=== PATIENT | male | born 1935 | race Caucasian/White ===

== ENCOUNTER 2018-05-06 10:39 | Observation (INO) | payer OTHER ==
[2018-05-06] MEDS ORDERED: NA CHLORIDE 0.9% 1,000 ML ONE ×2 (11:41→16:23)
--- NOTE | 2018-05-06 11:42 | RAD REPORT ---
EXAM DESCRIPTION: CT - Head Brain Wo Cont - 05/06/2018 11:35 am CLINICAL HISTORY: Syncope Drowsiness COMPARISON: Head Brain Wo Cont dated 10/24/2017; Head Brain Wo Cont dated 12/21/2015 TECHNIQUE: All CT scans are performed using dose optimization technique as appropriate and may inclu de automated exposure control or mA/KV adjustment according to patient size. FINDINGS: No intracranial hemorrhage, hydrocephalus or extra-axial fluid collection.Moderate general ized brain atrophy is present with mild periventricular and deep white matter chronic microvascular i schemic changes.No areas of brain edema or evidence of midline shift. The paranasal sinuses and mastoids are clear. The calvarium is intact. Right globe prosthesis noted. IMPRESSION: No acute intracranial abnormality.
--- NOTE | 2018-05-06 12:22 | RAD REPORT ---
EXAM DESCRIPTION: US - CP - 05/06/2018 11:59 am CLINICAL HISTORY: Carotid stenosis Syncope COMPARISON: Carotid Artery Bilateral dated 10/24/2017 TECHNIQUE: Real-time sonographic evaluation of both carotid systems was performed. Doppler interroga tion was performed with waveform tracing bilaterally. FINDINGS: Normal high resistance waveforms are noted in both external carotid arteries. The common c arotid arteries and internal carotid arteries show normal low resistance waveforms. Heavy atheromatous plaquing is present involving proximal right internal carotid artery. Peak systoli c velocity measures 180 cm/second within the proximal right internal carotid with elevated right ICA/ CCA ratio 1.8. No significant left-sided carotid stenosis. Antegrade flow seen in both vertebral arteries. IMPRESSION: Heavy atheromatous plaquing involving the proximal right ICA. Stenosis estimated at 75-80% of the proximal right ICA is suspected.
--- NOTE | 2018-05-06 12:25 | EKG ---
Test Date: 2018-05-06 Test Time: 11:00:59 [employer] Merchandiser: ABDIRASHID MEASUREMENT RESULTS: Intervals: Rate: 69 WV: 122 QRSD: 120 QT: 370 QTc: 396 [place]: P: 15 WV: 122 QRS: 37 T: -49 INTERPRETIVE STATEMENTS: Normal sinus rhythm Inferior infarct, age undetermined Cannot rule out Anterior infarct, age undetermined ST & T wave abnormality, consider lateral ischemia Abnormal ECG Compared to ECG 10/24/2017 09:59:16 ST (T wave) deviation now present Possible ischemia now present Atrial-paced complex(es) or rhythm no longer present Left ventricular hypertrophy no longer present Myocardial infarct finding still present Electronically Signed On 05-06-18 12:24:08 CDT by Christopher Rodriguez
--- NOTE | 2018-05-06 12:26 | RAD REPORT ---
EXAM DESCRIPTION: RAD - Chest Single View - 05/06/2018 12:19 pm CLINICAL HISTORY: COUGH Chest pain. COMPARISON: Chest Single View dated 10/24/2017; Chest Single View dated 09/27/2016; Chest Single View dated 12/21/2015; CHEST SINGLE VIEW dated 08/08/2014; Head C Spine Cap Wo Con dated 09/29/2017 FINDINGS: Portable technique limits examination quality. The lungs are grossly clear. The heart is mildly prominent with a dual lead pacer/defibrillator devic e. Hiatal hernia is likely present. Sternotomy wires present. IMPRESSION: No acute intrathoracic process suspected.
--- NOTE | 2018-05-06 12:31 | EDPHYS ---
Physician Documentation [facility] Name: Pee Humphrey Age: 82 yrs Sex: Male : 1935 Arrival Date: 05/06/2018 Time: 10:44 Bed 14 Private MD: [facility] ED Physician Иван Mcfarlane HPI: 05/06 11:31 This 82 yrs old Male presents to ER via Wheelchair with complaints of mariana Dizziness. 11:31 The patient presents with dizziness. Onset: The symptoms/episode began/occurred last mariana night. 11:32 The patient complains of pain to the forehead. The patient describes the headache as mariana aching. Onset: The symptoms/episode began/occurred last night. Context: occurred at home. Modifying factors: The symptoms are alleviated by tylenol. Associated signs and symptoms: The patient has no apparent associated signs or symptoms. Severity of symptoms: At its worst the pain was mild, in the emergency department the pain has resolved. Historical: - Allergies: 10:54 No Known Allergies; ch - Home Meds: 10:54 unable to verify, suspects is up to date [Active]; aspirin 81 mg Oral TbEC [Active]; ch b-12 500mcg [Active]; carvedilol 25 mg Oral tab 1 tab 2 times per day [Active]; clopidogrel 75 mg Oral tab 1 tab once daily [Active]; lisinopril 20 mg Oral tab 1 tab once daily [Active]; pravastatin 40 mg Oral tab 1 tab once daily [Active]; - PMHx: 10:54 CHF; Hyperlipidemia; Hypertension; ch - PSHx: 10:54 Pacemaker; Heart Surgery; - Immunization history:: Adult Immunizations up to date. - Social history:: Smoking status: Patient/guardian denies using tobacco. - Ebola Screening: : Patient negative for fever greater than or equal to 101.5 degrees Fahrenheit, and additional compatible Ebola Virus Disease symptoms Patient denies exposure to infectious person Patient denies travel to an Ebola-affected area in the 21 days before illness onset No symptoms or risks identified at this time. - Family history:: not pertinent. ROS: 11:32 Constitutional: Negative for fever, chills, and weight loss, Eyes: Negative for injury, mariana pain, redness, and discharge, ENT: Negative for injury, pain, and discharge, Neck: Negative for injury, pain, and swelling, Cardiovascular: Negative for chest pain, palpitations, and edema, Respiratory: Negative for shortness of breath, cough, wheezing, and pleuritic chest pain, Abdomen/GI: Negative for abdominal pain, nausea, vomiting, diarrhea, and constipation, Back: Negative for injury and pain, : Negative for injury, bleeding, discharge, and swelling, MS/Extremity: Negative for injury and deformity, Skin: Negative for injury, rash, and discoloration, Psych: Negative for depression, anxiety, suicide ideation, homicidal ideation, and hallucinations, Allergy/Immunology: Negative for hives, rash, and allergies, Endocrine: Negative for neck swelling, polydipsia, polyuria, polyphagia, and marked weight changes, Hematologic/Lymphatic: Negative for swollen nodes, abnormal bleeding, and unusual bruising. 11:32 Neuro: Positive for dizziness, headache. Exam: 11:32 Constitutional: This is a well developed, well nourished patient who is awake, alert, mariana and in no acute distress. Head/Face: Normocephalic, atraumatic. Eyes: Pupils equal round and reactive to light, extra-ocular motions intact. Lids and lashes normal. Conjunctiva and sclera are non-icteric and not injected. Cornea within normal limits. Periorbital areas with no swelling, redness, or edema. ENT: Nares patent. No nasal discharge, no septal abnormalities noted. Tympanic membranes are normal and external auditory canals are clear. Oropharynx with no redness, swelling, or masses, exudates, or evidence of obstruction, uvula midline. Mucous membranes moist. Neck: Trachea midline, no thyromegaly or masses palpated, and no cervical lymphadenopathy. Supple, full range of motion without nuchal rigidity, or vertebral point tenderness. No Meningismus. Chest/axilla: Normal chest wall appearance and motion. Nontender with no deformity. No lesions are appreciated. Cardiovascular: Regular rate and rhythm with a normal S1 and S2. No gallops, murmurs, or rubs. Normal PMI, no JVD. No pulse deficits. Respiratory: Lungs have equal breath sounds bilaterally, clear to auscultation and percussion. No rales, rhonchi or wheezes noted. No increased work of breathing, no retractions or nasal flaring. Abdomen/GI: Soft, non-tender, with normal bowel sounds. No distension or tympany. No guarding or rebound. No evidence of tenderness throughout. Back: No spinal tenderness. No costovertebral tenderness. Full range of motion. Male : Normal genitalia with no discharge or lesions. Skin: Warm, dry with normal turgor. Normal color with no rashes, no lesions, and no evidence of cellulitis. MS/ Extremity: Pulses equal, no cyanosis. Neurovascular intact. Full, normal range of motion. Neuro: Awake and alert, GCS 15, oriented to person, place, time, and situation. Cranial nerves II-XII grossly intact. Motor strength 5/5 in all extremities. Sensory grossly intact. Cerebellar exam normal. Normal gait. Psych: Awake, alert, with orientation to person, place and time. Behavior, mood, and affect are within normal limits. Vital Signs: 10:54 BP 122 / 78; Pulse 62; Resp 20; Temp 98.3; Pulse Ox 97% on R/A; Weight 61.23 kg; Height ch 4 ft. 9 in. (144.78 cm); Pain 0/10; 11:15 BP 112 / 61; Pulse 60; Resp 20; Pulse Ox 95% on R/A; Pain 0/10; cc3 12:45 BP 122 / 98; Pulse 60; Resp 20; Pulse Ox 98% on R/A; cc3 14:28 BP 155 / 74; Pulse 70; Resp 18; Pulse Ox 100% on R/A; mh5 15:00 BP 163 / 98; Pulse 63; Resp 20; Pulse Ox 100% on R/A; Pain 0/10; hj 10:54 Body Mass Index 29.21 (61.23 kg, 144.78 cm) MDM: 11:23 Patient medically screened. [facility] 11:35 Data reviewed: vital signs, nurses notes, lab test result(s), EKG, radiologic studies, [facility] CT scan, plain films. 05/06 11:24 Order name: Basic Metabolic Panel; Complete Time: 14:00 [facility] 05/06 11:24 Order name: CBC with Diff; Complete Time: 14:00 [facility] 05/06 11:24 Order name: Ckmb; Complete Time: 14:00 [facility] 05/06 11:24 Order name: CPK; Complete Time: 14:00 [facility] 05/06 11:24 Order name: LFT's; Complete Time: 14:00 [facility] 05/06 11:24 Order name: Magnesium; Complete Time: 14:00 [facility] 05/06 11:24 Order name: NT PRO-BNP; Complete Time: 14:00 [facility] 05/06 11:24 Order name: PT-INR; Complete Time: 14:00 [facility] 05/06 11:24 Order name: Ptt, Activated; Complete Time: 14:00 [facility] 05/06 11:24 Order name: Troponin (emerg Dept Use Only); Complete Time: 14:00 [facility] 05/06 11:24 Order name: XRAY Chest (1 view); Complete Time: 12:28 [facility] 05/06 11:24 Order name: CT Head Brain wo Cont; Complete Time: 12:28 [facility] 05/06 11:24 Order name: Urine Culture [facility] 05/06 12:39 Order name: Urine Dipstick--Ancillary (enter results); Complete Time: 14:00 05/06 11:24 Order name: EKG; Complete Time: 11:25 [facility] 05/06 11:24 Order name: Cardiac monitoring; Complete Time: 11:31 [facility] 05/06 11:24 Order name: EKG - Nurse/Tech; Complete Time: 11:31 [facility] 05/06 11:24 Order name: IV Saline Lock; Complete Time: 12:35 [facility] 05/06 11:24 Order name: Labs collected and sent; Complete Time: 12:35 [facility] 05/06 11:24 Order name: O2 Per Protocol; Complete Time: 11:31 [facility] 05/06 11:24 Order name: O2 Sat Monitoring; Complete Time: 12:17 [facility] 05/06 11:24 Order name: Urine Dipstick-Ancillary (obtain specimen); Complete Time: 12:17 [facility] 05/06 11:24 Order name: US Carotid Artery Bilateral; Complete Time: 12:28 [facility] 05/06 12:34 Order name: CONS Physician Consult EDOH 05/06 15:23 Order name: Diet Regular; Complete Time: 15:23 jl7 Administered Medications: 12:30 Drug: NS 0.9% 1000 ml Route: IV; Rate: 125 ml/hr; Site: left antecubital; cc3 12:38 Follow up: IV Status: Infusion continued upon admission hj 12:40 Drug: Aspirin Chewable Tablet 162 mg Route: PO; cc3 12:59 Follow up: Response: No adverse reaction cc3 Disposition: 05/06/18 12:31 Hospitalization ordered by Nanda Schaefer for Observation. Preliminary diagnosis are Dizziness and giddiness - right ica 75-80% blockage, Headache. - Bed requested for Telemetry/MedSurg (observation). - Status is Observation. hj - Condition is Fair. - Problem is new. - Symptoms have improved. UTI on Admission? No Signatures: Dispatcher [employer] EDMS Brenaa Chapa, RN Иван Melgoza ch, MD MD cha Williams, Irene, RN RN iw Scout Jean RN Isabel Noriega, RN MARY df Garima Montalvo cc3 Corrections: (The following items were deleted from the chart) 16:10 12:31 Hospitalization Ordered by Nanda Schaefer MD for Observation. Preliminary diagnosis iw is Dizziness and giddiness - right ica 75-80% blockage; Headache. Bed requested for Telemetry/MedSurg (observation). Status is Observation. Condition is Fair. Problem is new. Symptoms have improved. UTI on Admission? No. mariana 16:30 16:10 05/06/2018 12:31 Hospitalization Ordered by Nanda Schaefer MD for Observation. df Preliminary diagnosis is Dizziness and giddiness - right ica 75-80% blockage; Headache. Bed requested for [facility] ER HOLD. Status is Observation. Condition is Fair. Problem is new. Symptoms have improved. UTI on Admission? No. iw 17:14 16:30 05/06/2018 12:31 Hospitalization Ordered by Nanda Schaefer MD for Observation. hj Preliminary diagnosis is Dizziness and giddiness - right ica 75-80% blockage; Headache. Bed requested for Telemetry/MedSurg (observation). Status is Observation. Condition is Fair. Problem is new. Symptoms have improved. UTI on Admission? No. df
--- NOTE | 2018-05-06 12:31 | ER ---
Nurse's Notes [facility] Name: Pee Humphrey Age: 82 yrs Sex: Male : 1935 Arrival Date: 05/06/2018 Time: 10:44 Bed 14 Private MD: Osbaldo Cooley Diagnosis: Dizziness and giddiness-right ica 75-80% blockage;Headache Presentation: 05/06 10:51 Presenting complaint: Patient states: not feeling well since yesterday during the day, ch after dinner last night, dizzyness, and skin is purple. He was sent here by Dr. Cooley, he said to come to the ER. Transition of care: patient was not received from another setting of care. Onset of symptoms was May 05, 2018. Risk Assessment: Do you want to hurt yourself or someone else? Patient reports no desire to harm self or others. Initial Sepsis Screen: Does the patient meet any 2 criteria? No. Patient's initial sepsis screen is negative. Does the patient have a suspected source of infection? No. Patient's initial sepsis screen is negative. Care prior to arrival: None. 10:51 Method Of Arrival: Wheelchair 10:51 Acuity: VENANCIO 3 ch Triage Assessment: 10:54 General: Appears in no apparent distress. comfortable, Behavior is calm, cooperative, ch appropriate for age. Pain: Denies pain. Historical: - Allergies: 10:54 No Known Allergies; - Home Meds: 10:54 unable to verify, suspects is up to date [Active]; aspirin 81 mg Oral TbEC [Active]; ch b-12 500mcg [Active]; carvedilol 25 mg Oral tab 1 tab 2 times per day [Active]; clopidogrel 75 mg Oral tab 1 tab once daily [Active]; lisinopril 20 mg Oral tab 1 tab once daily [Active]; pravastatin 40 mg Oral tab 1 tab once daily [Active]; - PMHx: 10:54 CHF; Hyperlipidemia; Hypertension; ch - PSHx: 10:54 Pacemaker; Heart Surgery; - Immunization history:: Adult Immunizations up to date. - Social history:: Smoking status: Patient/guardian denies using tobacco. - Ebola Screening: : Patient negative for fever greater than or equal to 101.5 degrees Fahrenheit, and additional compatible Ebola Virus Disease symptoms Patient denies exposure to infectious person Patient denies travel to an Ebola-affected area in the 21 days before illness onset No symptoms or risks identified at this time. - Family history:: not pertinent. Screenin:04 Abuse screen: Denies threats or abuse. Denies injuries from another. Nutritional hj screening: No deficits noted. Tuberculosis screening: No symptoms or risk factors identified. Fall Risk None identified. Assessment: 11:04 General: Appears in no apparent distress. uncomfortable, Behavior is calm, cooperative, hj appropriate for age. Pain: Denies pain. Neuro: Level of Consciousness is awake, alert, obeys commands, Oriented to person, place, time, situation, Appropriate for age. Neuro: Reports dizziness, since last night. Cardiovascular: Capillary refill < 3 seconds Patient's skin is warm and dry. Respiratory: Airway is patent Respiratory effort is even, unlabored, Respiratory pattern is regular, symmetrical. GI: No signs and/or symptoms were reported involving the gastrointestinal system. : No signs and/or symptoms were reported regarding the genitourinary system. EENT: No signs and/or symptoms were reported regarding the EENT system. Derm: No signs and/or symptoms reported regarding the dermatologic system. Musculoskeletal: No signs and/or symptoms reported regarding the musculoskeletal system. 11:30 Reassessment: wheeled to CT and US;. hj 12:00 Reassessment: back from CT;. hj 13:30 Reassessment: Patient appears in no apparent distress at this time. Patient and/or hj family updated on plan of care and expected duration. Pain level reassessed. Patient is alert, oriented x 3, equal unlabored respirations, skin warm/dry/pink. Patient denies pain at this time. 14:25 Reassessment: Patient appears in no apparent distress at this time. Patient and/or hj family updated on plan of care and expected duration. Pain level reassessed. Patient is alert, oriented x 3, equal unlabored respirations, skin warm/dry/pink. 15:22 Reassessment: Patient appears in no apparent distress at this time. Patient and/or hj family updated on plan of care and expected duration. Pain level reassessed. Patient is alert, oriented x 3, equal unlabored respirations, skin warm/dry/pink. Patient denies pain at this time. Vital Signs: 10:54 BP 122 / 78; Pulse 62; Resp 20; Temp 98.3; Pulse Ox 97% on R/A; Weight 61.23 kg; Height 4 ft. 9 in. (144.78 cm); Pain 0/10; 11:15 BP 112 / 61; Pulse 60; Resp 20; Pulse Ox 95% on R/A; Pain 0/10; cc3 12:45 BP 122 / 98; Pulse 60; Resp 20; Pulse Ox 98% on R/A; cc3 14:28 BP 155 / 74; Pulse 70; Resp 18; Pulse Ox 100% on R/A; mh5 15:00 BP 163 / 98; Pulse 63; Resp 20; Pulse Ox 100% on R/A; Pain 0/10; hj 10:54 Body Mass Index 29.21 (61.23 kg, 144.78 cm) ED Course: 10:44 Patient arrived in ED. mr 10:44 Osbaldo Cooley DO is Private Physician. mr 10:53 Triage completed. ch 10:54 Arm band placed on left wrist. Patient placed in an exam room, on a stretcher. ch 11:03 Scout Jean, RN is Primary Nurse. hj 11:04 Patient has correct armband on for positive identification. Bed in low position. Call hj light in reach. Side rails up X 1. Adult w/ patient. 11:08 EKG done, by technology assistant. reviewed by Diaz Arias MD. at1 11:23 Иван Mcfarlane MD is Attending Physician. mariana 11:35 CT Head Brain wo Cont In Process Unspecified. EDMS 11:35 CT completed. Patient tolerated procedure well. Patient moved to CT via wheelchair. sj Patient taken to ultrasound. Patient moved back from CT. 11:59 US Carotid Artery Bilateral In Process Unspecified. EDMS 12:01 Garima Montalvo is Primary Nurse. cc3 12:18 X-ray completed. Portable x-ray completed in exam room. Patient tolerated procedure ml well. 12:20 XRAY Chest (1 view) In Process Unspecified. EDMS 12:25 Initial lab(s) drawn, by ma, sent to lab. Inserted saline lock: 22 gauge in left cc3 antecubital area, using aseptic technique. Blood collected. 12:30 Nanda Schaefer MD is Hospitalizing Provider. mariana 15:29 Diet: Patient given a regular meal tray. [facility] 16:30 Inserted saline lock: 22 gauge in right antecubital area, using aseptic technique. 17:13 No provider procedures requiring assistance completed. Patient admitted, IV remains in place. intact. Administered Medications: 12:30 Drug: NS 0.9% 1000 ml Route: IV; Rate: 125 ml/hr; Site: left antecubital; cc3 12:38 Follow up: IV Status: Infusion continued upon admission 12:40 Drug: Aspirin Chewable Tablet 162 mg Route: PO; cc3 12:59 Follow up: Response: No adverse reaction cc3 Outcome: 12:31 Decision to Hospitalize by Provider. mariana 17:13 Admitted to Tele accompanied by nurse, via wheelchair, room 428, with chart, Report hj called to MARY Raymond 17:13 Condition: stable 17:13 Instructed on the need for admit, Demonstrated understanding of instructions. 17:14 Patient left the ED. Signatures: Dispatcher [employer] EDMS Breana Chapa, RN Иван Melgoza ch, MD MD cha Rivera, Maria mr Jones, Roxana Zambrano Amanda, electric locomotive crane operator EKG Tat1 Scout Jean RN RN hj Martinez, Maria [facility] Garima Montalvo cc3
[2018-05-06 12:41] LABS: Absolute Lymphocytes (CBC) 1.2 K/uL (0.7-4.9); Absolute Monocytes 0.6 K/uL (0.1-1.3); Absolute Neutrophil 5.4 K/uL (1.8-8.0); Basophils % 0.7 % (0-1.3); Hematocrit 41.4 % (39.6-49.0); Lymphocytes % 16.2 % (15.3-44.8); MCH 31.7 pg (27.0-35.0); MCV 93.7 fL (80-100); MPV 11.4 fL (7.6-11.3); Monocytes % 7.8 % (3.3-12.3); RBC Red Blood Cell Count 4.42 M/uL (4.33-5.43)
[2018-05-06] MEDS ORDERED: ASPIRIN 81 MG CHEWABLE TABLET ONE (12:46)
[2018-05-06 12:49] LABS: Urine Blood NEGATIVE (NEG); Urine Glucose NEGATIVE (NEG); Urine Protein NEGATIVE (NEG); Urine Specific Gravity 1.025 (1.005-1.030); Urine pH 5.5 (5.0-7.0)
[2018-05-06 12:57] LABS: Protime INR 1.05
[2018-05-06 13:06] LABS: Albumin 3.7 g/dL (3.4-5.0); Bilirubin Direct 0.2 mg/dL (0-0.2); Bilirubin Total 0.7 mg/dL (0.2-1.0); CKMB Creatine Kinase MB 1.8 ng/mL (0.3-3.6); Magnesium 2.4 mg/dL (1.8-2.4); Potassium 4.7 mmol/L (3.5-5.1); Protein, Total 7.1 g/dL (6.4-8.2)
[2018-05-06] MEDS ORDERED: ONDANSETRON 4 MG/2 ML VIAL IV PRN (13:25)
[2018-05-06] MEDS ORDERED: NA CHLORIDE 0.9% 1,000 ML IV SCH (14:00)
[2018-05-06 17:57] VITALS: BMI 29.2
[2018-05-06] MEDS ORDERED: PNEUMOCOCCAL VACCINE 0.5 ML IMVAC ONE (21:00)
[2018-05-07 04:16] LABS: Absolute Lymphocytes (CBC) 1.2 K/uL (0.7-4.9); Absolute Monocytes 0.6 K/uL (0.1-1.3); Absolute Neutrophil 3.9 K/uL (1.8-8.0); Basophils % 0.6 % (0-1.3); Eosinophils % 2.3 % (0-4.4); Hematocrit 37.4 % (39.6-49.0); Lymphocytes % 20.7 % (15.3-44.8); MCH 31.6 pg (27.0-35.0); MPV 11.2 fL (7.6-11.3); Monocytes % 9.7 % (3.3-12.3); RBC Red Blood Cell Count 4.06 M/uL (4.33-5.43)
[2018-05-07 04:35] LABS: Albumin 3.3 g/dL (3.4-5.0); Bilirubin Total 0.7 mg/dL (0.2-1.0); Potassium 4.4 mmol/L (3.5-5.1); Protein, Total 6.1 g/dL (6.4-8.2)
--- NOTE | 2018-05-07 07:19 | P.HP ---
Certification for Inpatient Patient admitted to: Observation With expected LOS: <2 Midnights Patient will require the following post-hospital care: None Practitioner: I am a practitioner with admitting privileges, knowledge of patient current condition, hospital course, and medical plan of care. Services: Services provided to patient in accordance with Admission requirements found in Title 42 Section 412.3 of the Code of Federal Regulations Patient History Date of Service: 05/06/18 Reason for admission: Dizziness & headache; pt with 80% right internal carotid artery stenosis History of Present Illness: Patient is an 82-year-old gentleman who came into the hospital with complaints of headache and dizziness. Patient had not been feeling well for the last couple of days. His symptoms were getting progressively worse. Patient is mainly Persian speaking only. He was worked up and he was found have a 80% right internal carotid artery stenosis. He was also feeling weak and decision was made to admit him for observation for further workup. Patient has a history of cardiac disease and has a pacemaker placed. Patient had a CT scan of the head which did not reveal any abnormalities. Patient will need to be observed and we are unable to do an MRI because of the pacemaker. Continue with clinical monitoring. Allergies No Known Allergies Allergy (Verified 08/08/14 22:48) Home Medications: Aspirin 81 mg PO DAILY 05/06/18 Carvedilol [Coreg] 25 mg PO BID 05/06/18 Clopidogrel Bisulfate [Plavix] 75 mg PO DAILY 05/06/18 D3/Red Wine/Resveratrol/Malt [Super-D3+ Softgel] 5,000 iu PO DAILY 05/06/18 Lisinopril 20 mg PO BID 05/06/18 Mecobalamin [B-12] 5,000 mcg PO DAILY 05/06/18 Pravastatin Sodium 40 mg PO DAILY 05/06/18 - Past Medical/Surgical History Has patient received pneumonia vaccine in the past: No Diabetic: No -: Hyperlipidemia -: HLD -: BPH -: glaucoma -: cataracts -: CABG -: pacemaker -: bridgette -: prostate sx -: l/eye cataract sx -: right eye prosthetic -: [place] (2000) - Family History Father Medical History: Lung disease Mother Medical History: Diabetes - Social History Smoking Status: Never smoker Alcohol use: No CD- Drugs: No Caffeine use: Yes Place of Residence: Home Review of Systems 10-point ROS is otherwise unremarkable Physical Examination - Vital Signs Temperature: 98.0 F Blood Pressure: 120/78 Pulse: 68 Respirations: 17 Pulse Ox (%): 97 - Physical Exam General: Alert, In no apparent distress, Oriented x3 HEENT: Atraumatic, PERRLA, Mucous membr. moist/pink, EOMI, Sclerae nonicteric Neck: Supple, 2+ carotid pulse no bruit, No LAD, Without JVD or thyroid abnormality Respiratory: Clear to auscultation bilaterally, Normal air movement Cardiovascular: Regular rate/rhythm, Normal S1 S2, No murmurs Gastrointestinal: Normal bowel sounds, Soft and benign, Non-distended, No tenderness Musculoskeletal: No clubbing, No swelling, No tenderness Integumentary: No rashes Neurological: Normal gait, Normal speech, Normal strength at 5/5 x4 extr, Normal tone, Sensation intact, Cranial nerves 3-12 intact, Normal affect Lymphatics: No axilla or inguinal lymphadenopathy - Studies Laboratory Data (last 24 hrs) 05/06/18 12:20: PT 12.4, INR 1.05, APTT 30.8 05/06/18 12:20: WBC 7.2, Hgb 14.0, Hct 41.4, Plt Count 141 L 05/06/18 12:20: Sodium 142, Potassium 4.7, BUN 25 H, Creatinine 1.30, Glucose 95 , Magnesium 2.4, Total Bilirubin 0.7, AST 18, ALT 16, Alkaline Phosphatase 92 Assessment & Plan - Problems (Diagnosis) (1) Stenosis of right carotid artery greater than 50% Current Visit: Yes Status: Acute (2) Syncope Onset Date: 12/22/15 Current Visit: No Status: Resolved Qualifiers: (3) Dizziness Current Visit: Yes Status: Acute (4) CAD (coronary artery disease) Onset Date: 09/28/16 Current Visit: No Status: Chronic Qualifiers: (5) Weakness Onset Date: 12/22/15 Current Visit: No Status: Resolved - Plan Plan: 1. Continue with anti-platelet therapy 2. Continue with statin therapy 3. Continue lipid profile 4. Echocardiogram 5. Cardiology consultation 6. Neurology consultation 7. Physical therapy evaluation 8. Repeat CT scan or CT angio if clinically indicated 9. GI and DVT prophylaxis Discharge Plan: Home Plan to discharge in: Greater than 2 days - Advance Directives Does patient have a Living Will: No Does patient have a Durable POA for Healthcare: Yes - Code Status/Comfort Care Code Status Assessed: Yes Code Status: Full Code Critical Care: No Time Spent Managing PTS Care (In Minutes): 50
[2018-05-07 08:35] VITALS: BP 171/82
[2018-05-07] MEDS ORDERED: CARVEDILOL 25 MG TAB PO SCH (09:00)
[2018-05-07] MEDS ORDERED: CLOPIDOGREL 75 MG TABLET PO SCH (09:00)
[2018-05-07] MEDS ORDERED: ASPIRIN 81 MG CHEWABLE TABLET PO SCH (09:00)
[2018-05-07 09:20] VITALS: O2SAT 97
[2018-05-07 10:28] VITALS: TEMP 98.5
[2018-05-07] MEDS ORDERED: PNEUMOCOCCAL VACCINE 0.5 ML IMVAC ONE (12:00)
[2018-05-07] MEDS ORDERED: ATORVASTATIN 10 MG TAB PO SCH (21:00)
--- NOTE | 2018-05-08 05:38 | DS ---
Date of Discharge: 05/07/2018 Consultants: Dr. Rodriguez with Cardiology. Procedures: None. Discharge Diagnoses: 1. Near-syncopal episode. 2. Dizziness. 3. Headache. 4. Coronary artery disease, three affiliated artery, three affiliated heart without angina. 5. Generalized weakness. 6. Carotid artery stenosis on the right, 80%. Hospital Course: The patient is an 82-year-old male who sees Dr. Molina as an outpatient, who has multiple comorbid conditions including hyperlipidemia, hypertension, benign prostatic hyperplasia, glaucoma, cataracts, history of coronary artery disease status post CABG, pacemaker, prosthetic right eye, prostate surgery, comes in with dizziness and headache. The patient was found to have 80% right internal carotid artery stenosis. However, this is something that is chronic for him and has been under the care of Dr. Molina. The patient had a head CT scan, which did not reveal any acute abnormalities. No bleed. The patient was unable to obtain MRI due to pacemaker. However, he was observed overnight for further evaluation and treatment. He was started on IV fluids. His electrolytes were within normal limits, did not have any white count or other source of infection. His chest x-ray was clear. The patient was then feeling better. His symptoms of headache and dizziness resolved. He does seem to get them intermittently. No signs of tinnitus. The patient was then able to ambulate well without any assistance. Did not have any further episodes of dizziness. His blood pressure was stable. He was then cleared for discharge from Cardiology standpoint. He was sent home in a stable condition. Activity: Fall precautions. Diet: Heart healthy. Medications: As per medication reconciliation list. Followup: Follow up with primary care physician in 2 to 3 days. Follow up with blood donor recruiter supervisor, Dr. Molina, in 1 week. Return to ER for worsening condition. Physical Examination: General: Awake, alert, oriented x3. Elderly male. CV: S1, S2. No murmurs. Respiratory: Moving air well bilaterally. No wheezing. Gastrointestinal: Abdomen is soft, nontender, nondistended. Positive bowel sounds. Extremities: No clubbing, cyanosis, edema. Neurologic: Nonfocal. Code Status: Full. SA/MODL Voice ID: [id number] Report ID: [id number] MTDD
--- NOTE | 2018-05-08 06:38 | CON ---
Date of Consultation: 05/07/[address] to Dr. Schaefer's service on 05/06/2018. I saw the patient on 05/07/2018. Reason For Consultation: Carotid stenosis. History Of Present Illness: Mr. Humphrey is an 82-year-old male. He is known to us from 2016 when we saw him here for the same diagnosis. He had come in mostly with dizziness. Was found to have an 80% blockage on the right carotid. In 2016, he had carotid Doppler showing the same findi ng. At that time, he had an ejection fraction of 45% as well. In 2016, he was to follow up with Dr. Molina regarding his right carotid. Family states that the patient has had surgery on his carotid artery, but they could not remember when this was done. The patient has really no symptoms regarding his carotid Doppler. His dizziness is not coming from right carotid stenosis. The patient denied a ny cardiac symptoms. Past Medical History: Include cerebrovascular disease, CHF, history of pacemaker, history of CABG, h ypertension, dyslipidemia. Allergies: NONE. Review of Systems: Negative. Social History: Negative. Family History: Noncontributory. Medications: At home include aspirin, Coreg, Plavix, lisinopril, and Pravachol. Physical Examination: Vital Signs: Stable. Normal rhythm. No acute distress. HEENT: Negative. Neck: Supple without adenopathy, JVD, or thyromegaly. Has a right carotid bruit. Chest: Clear. Cardiac: Reveals regular rhythm and rate without any murmurs, gallops, or rubs. Abdomen: Benign. Extremities: Revealed no clubbing, cyanosis, or edema. Impression And Plan: Right carotid stenosis that is chronic. The right carotid stenosis does not ca use dizziness. He does not have any symptoms suggestive of transient ischemic attack or stroke. The patient needs to follow up with Dr. Molina regarding his right carotid artery stenosis. He has an appointment with him coming up soon. I do believe that he needs a carotid angiogram done. According to family, he has had a cardiac workup recently because of his history of coronary artery disease an d coronary artery bypass grafting and that was normal according to them. He has chronic systolic con gestive heart failure with an ejection fraction of 45% that is asymptomatic at this point. His blood pressure and cholesterol are stable and his last pacemaker check was normal. Mr. Humphrey can go home whenever it is okay with Dr. Schaefer and he will follow up with Dr. Molina regarding his right carotid stenosis in the near future. MARCELINO/CARMEN Voice ID: [id number] Report ID: [id number]
== END 2018-05-07 12:54 | disposition home or self-care (01) ==
LOC: ER 10:39 → ERHOLD 12:32 → 4TH 17:05
PROVIDERS: ADMIT Family Medicine; ATTEND Hospitalist
DX: R51 Headache (principal); R42 Dizziness and giddiness; R55 Syncope and collapse; R53.1 Weakness; I25.10 Atherosclerotic heart disease of native coronary artery without angina pectoris; I65.21 Occlusion and stenosis of right carotid artery; E78.5 Hyperlipidemia, unspecified; I11.0 Hypertensive heart disease with heart failure; I50.22 Chronic systolic (congestive) heart failure; N40.0 Benign prostatic hyperplasia without lower urinary tract symptoms; Z95.0 Presence of cardiac pacemaker; Z95.1 Presence of aortocoronary bypass graft; Z79.82 Long term (current) use of aspirin; Z23 Encounter for immunization
CPT/HCPCS: 36415; 70450; 71045; 80048; 80053; 80076; 81003; 82550; 82553; 83735; 83880; 84484; 85025 ×2; 85610; 85730; 87086; 87088; 90670; 93005; 93880; 94760 ×3; 99285; G0009; G0378 ×2; J2405; J7030 ×3

== ENCOUNTER 2018-08-28 10:36 | Observation (INO) | payer OTHER ==
--- NOTE | 2018-08-28 11:22 | RAD REPORT ---
EXAM DESCRIPTION: CT - Head Brain Wo Cont - 08/28/2018 11:02 am CLINICAL HISTORY: Headache /alteration of consciousness COMPARISON: April 2018 TECHNIQUE: Computed axial tomography of the head was obtained. IV contrast was not requested. All CT scans are performed using dose optimization technique as appropriate and may include automated exposure control or mA/KV adjustment according to patient size. FINDINGS: An intracranial bleed is not seen . The ventricles are normal in caliber. No extra-axial fluid collection is noted. Cerebral atrophy is present. Mild low-density areas within periventricular deep white matter likely represent ischemic changes secondary to small vessel disease Fluid within the sinuses/ mastoids is not seen. IMPRESSION: No acute intracranial abnormality is seen. If patient's symptoms persist MRI of the bra in would be recommended.
[2018-08-28 11:26] LABS: Absolute Lymphocytes (CBC) 0.9 K/uL (0.7-4.9); Absolute Monocytes 0.4 K/uL (0.1-1.3); Absolute Neutrophil 6.3 K/uL (1.8-8.0); Basophils % 0.3 % (0-1.3); Eosinophils % 1.3 % (0-4.4); Hematocrit 38.4 % (39.6-49.0); Lymphocytes % 11.5 % (15.3-44.8); MPV 10.7 fL (7.6-11.3); Monocytes % 5.3 % (3.3-12.3); RBC Red Blood Cell Count 3.96 M/uL (4.33-5.43)
[2018-08-28 11:31] LABS: Protime INR 1.03
--- NOTE | 2018-08-28 11:32 | RAD REPORT ---
EXAM DESCRIPTION: Hortensia Single View08/28/2018 11:26 am CLINICAL HISTORY: Chest pain COMPARISON: April 2018 FINDINGS: The lungs appear clear of acute infiltrate. The heart is mildly enlarged. Pacemaker leads are in place. Postsurgical changes involve the chest IMPRESSION: No acute abnormalities displayed
[2018-08-28 11:47] LABS: ALT/SGPT 16 U/L (12-78); AST/SGOT 16 U/L (15-37); Albumin 3.7 g/dL (3.4-5.0); Alkaline Phosphatase 90 U/L (45-117); BUN Blood Urea Nitrogen 33 mg/dL (7-18); Bicarbonate 22 mmol/L (21-32); Bilirubin Direct 0.2 mg/dL (0-0.2); Bilirubin Total 0.5 mg/dL (0.2-1.0); CKMB Creatine Kinase MB 2.5 ng/mL (0.3-3.6); Creatine Phosphokinase 171 U/L (39-308); Glucose Level 149 mg/dL (74-106); Lipase 331 U/L (73-393); Potassium 4.7 mmol/L (3.5-5.1); Protein, Total 6.9 g/dL (6.4-8.2); Sodium Level 138 mmol/L (136-145); Troponin (Emerg Dept Use Only) < 0.02 ng/mL (0.0-0.045)
--- NOTE | 2018-08-28 12:54 | EDPHYS ---
Physician Documentation [facility] Name: Pee Humphrey Age: 83 yrs Sex: Male : 1935 Arrival Date: 08/28/2018 Time: 10:41 Bed 4 Private MD: ED Physician Diaz Arias HPI: 08/28 16:03 This 83 yrs old Male presents to ER via EMS with complaints of AMS. kdr 16:03 The patient presents with confusion, decreased mental status, decreased responsiveness. kdr Onset: The symptoms/episode began/occurred at an unknown time. Family found the patient to be poorly responsive and confused. When EMS arrived, his SBO was 90 and his O2 sat was 83%. After about 15 minutes, the patient began two arouse and by the time he was in the ED, he appeared to be largely back to baseline.. Possible causes: CVA or TIA, head injury, low blood sugar, sepsis. Associated signs and symptoms: The patient has no apparent associated signs or symptoms. Current symptoms: In the emergency department the patient's symptoms have improved, markedly, is less confused. Patient's baseline: Neuro: Motor: no deficits, Ambulation: unable to walk, is bedridden, Speech: the patient can speak but doesn't make sense. It is unknown whether or not the patient has had similar symptoms in the past. The patient has not recently seen a physician. Historical: - Allergies: 10:52 No Known Allergies; tw2 - Home Meds: 10:50 pravastatin 40 mg Oral tab 1 tab once daily [Active]; aspirin 81 mg Oral TbEC [Active]; tw2 b-12 500mcg [Active]; carvedilol 25 mg Oral tab 1 tab 2 times per day [Active]; lisinopril 20 mg Oral tab 1 tab once daily [Active]; clopidogrel 75 mg Oral tab 1 tab once daily [Active]; Vitamin D3 5,000 unit oral tab [Active]; 10:55 hydrochlorothiazide 12.5 mg Oral cap 1 cap once daily [Active]; Toviaz 4 mg oral Tb24 1 tw2 tab once daily [Active]; tamsulosin 0.4 mg oral cp24 1 cap once daily [Active]; - PMHx: 10:50 CHF; Hyperlipidemia; Hypertension; tw2 - PSHx: 10:50 Pacemaker; Heart Surgery; tw2 - Immunization history:: Adult Immunizations. - Social history:: Smoking status: . - Ebola Screening: : Patient denies travel to an Ebola-affected area in the 21 days before illness onset. ROS: 16:03 Constitutional: Negative for fever, chills, and weight loss, Eyes: Negative for injury, kdr pain, redness, and discharge, Neck: Negative for injury, pain, and swelling, Cardiovascular: Negative for chest pain, palpitations, and edema, Respiratory: Negative for shortness of breath, cough, wheezing, and pleuritic chest pain, Abdomen/GI: Negative for abdominal pain, nausea, vomiting, diarrhea, and constipation, Back: Negative for injury and pain, : Negative for injury, bleeding, discharge, and swelling, MS/Extremity: Negative for injury and deformity, Skin: Negative for injury, rash, and discoloration. 16:03 Neuro: Positive for altered mental status, headache, weakness, Negative for Exam: 16:24 Constitutional: This is a well developed, well nourished somewhat cachectic but is kdr awake and in no acute distress. Head/Face: Normocephalic, atraumatic. Eyes: Pupils equal round and reactive to light, extra-ocular motions intact. Lids and lashes normal. Conjunctiva and sclera are non-icteric and not injected. Cornea within normal limits. Periorbital areas with no swelling, redness, or edema. Neck: Trachea midline, no thyromegaly or masses palpated, and no cervical lymphadenopathy. Supple, full range of motion without nuchal rigidity, or vertebral point tenderness. No Meningismus. Chest/axilla: Normal chest wall appearance and motion. Nontender with no deformity. No lesions are appreciated. Cardiovascular: Regular rate and rhythm with a normal S1 and S2. No gallops, murmurs, or rubs. Normal PMI, no JVD. No pulse deficits. Respiratory: Lungs have equal breath sounds bilaterally, clear to auscultation and percussion. No rales, rhonchi or wheezes noted. No increased work of breathing, no retractions or nasal flaring. Abdomen/GI: Soft, non-tender, with normal bowel sounds. No distension or tympany. No guarding or rebound. No evidence of tenderness throughout. Back: No spinal tenderness. No costovertebral tenderness. Full range of motion. Skin: Warm, dry with normal turgor. Normal color with no rashes, no lesions, and no evidence of cellulitis. MS/ Extremity: Pulses equal, no cyanosis. Neurovascular intact. Full, normal range of motion. 16:24 Neuro: Orientation: to person, place, Not oriented to time, situation, Mentation: slow to respond, somnolent, responsive to pain, Motor: moves all fours. Vital Signs: 10:48 BP 123 / 70; Pulse 82; Resp 14; Temp 98.2; Pulse Ox 97% ; Pain 6/10; sg 12:15 BP 121 / 58; Pulse 64; Resp 17 S; Pulse Ox 100% ; Pain 3/10; sg 14:15 BP 118 / 72; Pulse 80; Resp 17; Temp 98.1; Pulse Ox 98% ; Pain 4/10; sg [place] Coma Score: 12:15 Eye Response: spontaneous(4). Verbal Response: oriented(5). Motor Response: obeys sg commands(6). Total: 15. MDM: 12:52 Data reviewed: vital signs, nurses notes, lab test result(s), EKG, radiologic studies. kdr Counseling: I had a detailed discussion with the patient and/or guardian regarding: the historical points, exam findings, and any diagnostic results supporting the discharge/admit diagnosis, lab results, radiology results, the need for further work-up and treatment in the hospital. ED course: EMS documented a saturation of 83% and a SBP of 90 in the field with altered mental status. 12:53 Patient medically screened. kdr 08/28 10:42 Order name: Basic Metabolic Panel; Complete Time: 12:40 kdr 08/28 10:42 Order name: Blood Culture Adult (2) kdr 08/28 10:42 Order name: CBC with Diff; Complete Time: 12:40 kdr 12 10:42 Order name: Ckmb; Complete Time: 12:40 kdr 12 10:42 Order name: CPK; Complete Time: 12:40 kdr 12 10:42 Order name: Lactate; Complete Time: 12:40 kdr 08/28 10:42 Order name: LFT's; Complete Time: 12:40 kdr 08/28 10:42 Order name: Lipase; Complete Time: 12:40 kdr 08/28 10:42 Order name: Procalcitonin; Complete Time: 12:40 kdr 12 10:42 Order name: Protime (+inr); Complete Time: 12:40 kdr 08/28 10:42 Order name: Ptt, Activated; Complete Time: 12:40 kdr 08/28 10:42 Order name: Troponin (emerg Dept Use Only); Complete Time: 12:40 kdr 08/28 10:42 Order name: Urine Microscopic Only kdr 08/28 10:42 Order name: Chest Single View XRAY; Complete Time: 12:40 kdr 08/28 10:42 Order name: Accucheck; Complete Time: 14:18 kdr 08/28 10:42 Order name: Cardiac monitoring; Complete Time: 14:18 kdr 08/28 10:42 Order name: EKG - Nurse/Tech; Complete Time: 14:18 kdr 08/28 10:42 Order name: IV Saline Lock - Large Bore; Complete Time: 14:18 kdr 08/28 10:42 Order name: Labs collected and sent; Complete Time: 14:18 kdr 08/28 10:42 Order name: O2 Per Protocol; Complete Time: 14:18 kdr 08/28 10:42 Order name: O2 Sat Monitoring; Complete Time: 14:18 kdr 08/28 10:42 Order name: Urine Dipstick-Ancillary (obtain specimen); Complete Time: 14:18 kdr 08/28 10:43 Order name: CT Head Brain wo Cont; Complete Time: 12:40 kdr 08/28 12:17 Order name: EKG Electrocardiogram EDMS Administered Medications: No medications were administered Disposition: 08/28/18 12:53 Hospitalization ordered by Carrie Ram for Observation. Preliminary diagnosis are Altered mental status, unspecified, Hypoxia and hypotension. - Bed requested for Telemetry/MedSurg (observation). - Status is Observation. sg - Condition is Fair. - Problem is new. - Symptoms have improved. UTI on Admission? No Signatures: Dispatcher [employer] EDMS Funmi Rosen RN RN dw Mohan Schulte RN RN sg Diaz Arias MD MD kdr Shirin Jacques RN RN tw2 Corrections: (The following items were deleted from the chart) 13:30 12:53 Hospitalization Ordered by Carrie Ram MD for Observation. Preliminary diagnosis dw is Altered mental status, unspecified; Hypoxia and hypotension. Bed requested for Telemetry/MedSurg (observation). Status is Observation. Condition is Fair. Problem is new. Symptoms have improved. UTI on Admission? No. kdr 14:24 13:30 08/28/2018 12:53 Hospitalization Ordered by Carrie Ram MD for Observation. sg Preliminary diagnosis is Altered mental status, unspecified; Hypoxia and hypotension. Bed requested for Telemetry/MedSurg (observation). Status is Observation. Condition is Fair. Problem is new. Symptoms have improved. UTI on Admission? No. dw
--- NOTE | 2018-08-28 12:54 | ER ---
Nurse's Notes [facility] Name: Pee Humphrey Age: 83 yrs Sex: Male : 1935 Arrival Date: 08/28/2018 Time: 10:41 Bed 4 Private MD: Diagnosis: Altered mental status, unspecified;Hypoxia and hypotension Presentation: 08/28 10:40 Presenting complaint: EMS states: pt lives at home with his son, the son noticed he was tw2 pale and unresponsive and said that he would twitch, and this has happened before but this time it is lasting longer, when we arrived he was pale and unresponsive, he would twitch, then wake up, we got a 20g and a ns bolus in him, initially couldn't get a bp reading, we got 90/55 in the truck, now he is a\T\ox 3. Transition of care: patient was not received from another setting of care. Onset of symptoms. Risk Assessment: Do you want to hurt yourself or someone else? Patient reports no desire to harm self or others. Initial Sepsis Screen: Does the patient meet any 2 criteria? No. Patient's initial sepsis screen is negative. Does the patient have a suspected source of infection? No. Patient's initial sepsis screen is negative. Care prior to arrival: Medication(s) given: Normal saline infusion, 500 mL, IV initiated. 20 GA, in the left forearm. 10:40 Method Of Arrival: EMS: [facility] tw2 10:40 Acuity: VENANCIO 3 tw Historical: - Allergies: 10:52 No Known Allergies; tw - Home Meds: 10:50 pravastatin 40 mg Oral tab 1 tab once daily [Active]; aspirin 81 mg Oral TbEC [Active]; tw2 b-12 500mcg [Active]; carvedilol 25 mg Oral tab 1 tab 2 times per day [Active]; lisinopril 20 mg Oral tab 1 tab once daily [Active]; clopidogrel 75 mg Oral tab 1 tab once daily [Active]; Vitamin D3 5,000 unit oral tab [Active]; 10:55 hydrochlorothiazide 12.5 mg Oral cap 1 cap once daily [Active]; Toviaz 4 mg oral Tb24 1 tw2 tab once daily [Active]; tamsulosin 0.4 mg oral cp24 1 cap once daily [Active]; - PMHx: 10:50 CHF; Hyperlipidemia; Hypertension; tw2 - PSHx: 10:50 Pacemaker; Heart Surgery; tw2 - Immunization history:: Adult Immunizations. - Social history:: Smoking status: . - Ebola Screening: : Patient denies travel to an Ebola-affected area in the 21 days before illness onset. Screenin:51 Abuse screen: Denies threats or abuse. Nutritional screening: No deficits noted. tw2 Tuberculosis screening: No symptoms or risk factors identified. Fall Risk None identified. Assessment: 11:00 General: Appears in no apparent distress. uncomfortable, slender, well groomed, well sg developed, well nourished, Behavior is calm, cooperative, appropriate for age. Pain: Complains of pain in back of head Pain does not radiate. Neuro: Level of Consciousness is awake, alert, obeys commands, Oriented to person, place, Speech is normal, Facial symmetry appears normal. Cardiovascular: Heart tones S1 S2 present Capillary refill is brisk in bilateral fingers Patient's skin is warm and dry. Chest pain is denied. Respiratory: Airway is patent Respiratory effort is even, unlabored, Respiratory pattern is regular, symmetrical, Breath sounds are clear. GI: Abdomen is round non-distended, Bowel sounds present X 4 quads. : No signs and/or symptoms were reported regarding the genitourinary system. EENT: No signs and/or symptoms were reported regarding the EENT system. Derm: Skin is pink, warm \T\ dry. Musculoskeletal: No signs and/or symptoms reported regarding the musculoskeletal system. Vital Signs: 10:48 BP 123 / 70; Pulse 82; Resp 14; Temp 98.2; Pulse Ox 97% ; Pain 6/10; sg 12:15 BP 121 / 58; Pulse 64; Resp 17 S; Pulse Ox 100% ; Pain 3/10; sg 14:15 BP 118 / 72; Pulse 80; Resp 17; Temp 98.1; Pulse Ox 98% ; Pain 4/10; sg Jennifer Coma Score: 12:15 Eye Response: spontaneous(4). Verbal Response: oriented(5). Motor Response: obeys sg commands(6). Total: 15. ED Course: 10:40 Placed in gown. Bed in low position. Side rails up X2. residential monitor on. Pulse ox on. tw2 NIBP on. Warm blanket given. 10:41 Patient arrived in ED. tw2 10:41 Diaz Arias MD is Attending Physician. kdr 10:46 Mohan Schulte, RN is Primary Nurse. sg 10:47 Triage completed. tw2 10:47 Arm band placed on. tw2 10:47 Initial lab(s) drawn, by me, sent to lab. Maintain EMS IV. Dressing intact. Good blood sg return noted. Site clean \T\ dry. Gauge \T\ site: 20 L Forearm. IV is patent, is intact, with fluids infusing freely, with good blood return, Flushed left forearm with 5 ml normal saline. 10:54 EKG done, by tool and die technician. reviewed by Diaz Arias MD. at1 11:02 CT Head Brain wo Cont In Process Unspecified. EDMS 11:27 Chest Single View XRAY In Process Unspecified. EDMS 11:40 Inserted saline lock: 22 gauge in right forearm, using aseptic technique. Blood sg collected. 11:40 First set of blood cultures drawn by me. sg 12:52 Carrie Ram MD is Hospitalizing Provider. kdr 14:20 No provider procedures requiring assistance completed. Patient admitted, IV remains in sg place. intact, No redness/swelling at site. Administered Medications: No medications were administered Outcome: 12:53 Decision to Hospitalize by Provider. kdr 14:15 Admitted to Tele sg 14:15 Condition: stable 14:15 Instructed on follow up and referral plans. safety practices, Demonstrated understanding of instructions, follow-up care. 14:24 Patient left the ED. sg Signatures: Dispatcher [employer] EDMS Mohan Schulte, RN RN Diaz Arias MD MD kdr Jessie Carreon, disaster response director EKG Tat1 Shirin Jacques RN RN tw2
[2018-08-28] MEDS ORDERED: ACETAMINOPHEN 500 MG TAB PO PRN (14:45)
[2018-08-28 15:08] VITALS: BMI 27.1
[2018-08-28] MEDS: NA CHLORIDE 0.9% 1,000 ML IV SCH ×2 (15:28→21:30)
[2018-08-28 17:13] LABS: Urine Bacteria <20 /HPF (NONE SEEN); Urine RBC <5 /HPF (NONE SEEN)
[2018-08-28 17:14] LABS: Urine Culture Reflex Order REFLEXED; Urine Mucus MOD /HPF (NONE SEEN)
--- NOTE | 2018-08-28 18:51 | P.HP ---
Certification for Inpatient Patient admitted to: Observation With expected LOS: <2 Midnights Practitioner: I am a practitioner with admitting privileges, knowledge of patient current condition, hospital course, and medical plan of care. Services: Services provided to patient in accordance with Admission requirements found in Title 42 Section 412.3 of the Code of Federal Regulations Patient History Date of Service: 08/29/18 History of Present Illness: This is a 83-year-old male with history of CHF, hyperlipidemia, hypertension and a pacemaker admitted for an episode of unresponsiveness this morning that lasts over 15 min that. Per patient, he fell as low as well as this morning. He did he called ambulance and was brought to the ER. Per daughter, he does have episodes like this in passing out with diaphoresis. Nothing different this time per daughter. In the ER, his oxygen was low in the 80s and they were unable to get a blood pressure. After some fluids, his blood pressure did improve to 90/55 and improved even further from there. At the time of my exam, his back to baseline, denying any chest pain, shortness breath, dizziness, pain and worry is symptoms. He does use a cane to walk at home and he is pretty independent at baseline. At the time of my exam, he was satting 90% on room air as of has a stable and he was hemodynamically stable. We will be admitted for observation overnight Son was on at bedside, but after speaking to nurse it seems that the son did he potentially heard the defibrillator going off last night when patient fell. But he is not very sure and neither is the patient. Allergies No Known Allergies Allergy (Verified 08/28/18 14:47) Home Medications: Aspirin 81 mg PO DAILY 05/06/18 Clopidogrel Bisulfate [Plavix*] 75 mg PO DAILY 05/06/18 D3/Red Wine/Resveratrol/Malt [Super-D3+ Softgel] 5,000 iu PO DAILY 05/06/18 Lisinopril 20 mg PO BID 05/06/18 Mecobalamin [B-12] 1,000 mcg PO DAILY 05/06/18 Pravastatin Sodium 40 mg PO DAILY 05/06/18 Fesoterodine Fumarate [Toviaz] 1 tab PO DAILY 08/28/18 Tamsulosin [Flomax*] 1 tab PO BEDTIME 08/28/18 Carvedilol [Coreg] 12.5 mg PO BID #30 tab 12/21/18 - Past Medical/Surgical History Has patient received pneumonia vaccine in the past: Yes Diabetic: No -: Hyperlipidemia -: CHF -: BPH -: glaucoma -: cataracts -: CABG -: HTN -: Pacemaker -: ND -: pacemaker -: bridgette -: prostate sx -: l/eye cataract sx -: right eye prosthetic -: ND (2000) - Family History Father -: Lung disease Mother -: Diabetes - Social History Smoking Status: Never smoker Alcohol use: No CD- Drugs: No Caffeine use: Yes Place of Residence: Home Review of Systems General: Unremarkable Eyes: Unremarkable ENT: Unremarkable Respiratory: Unremarkable Cardiovascular: Unremarkable Gastrointestinal: Unremarkable Genitourinary: Unremarkable Musculoskeletal: Unremarkable Integumentary: Unremarkable Neurological: As per HPI Physical Examination - Vital Signs Temperature: 98.8 F Blood Pressure: 112/56 Pulse: 72 Respirations: 18 Pulse Ox (%): 96 - Physical Exam General: Alert, In no apparent distress, Oriented x3 HEENT: Atraumatic, PERRLA, Mucous membr. moist/pink, EOMI, Sclerae nonicteric Neck: Supple, 2+ carotid pulse no bruit, No LAD, Without JVD or thyroid abnormality Respiratory: Clear to auscultation bilaterally, Normal air movement Cardiovascular: Regular rate/rhythm, Normal S1 S2 Gastrointestinal: Normal bowel sounds, No tenderness Musculoskeletal: No tenderness Integumentary: No rashes Neurological: Normal gait, Normal speech, Normal strength at 5/5 x4 extr, Normal tone, Normal affect Lymphatics: No axilla or inguinal lymphadenopathy - Studies Laboratory Data (last 24 hrs) 08/28/18 10:55: PT 12.1, INR 1.03, APTT 22.7 L 08/28/18 10:55: WBC 7.7, Hgb 13.0 L, Hct 38.4 L, Plt Count 151 L 08/28/18 10:55: Sodium 138, Potassium 4.7, BUN 33 H, Creatinine 1.70 H, Glucose 149 H, Total Bilirubin 0.5, AST 16, ALT 16, Alkaline Phosphatase 90, Lipase 331 Assessment and Plan - Plan This is an 83-year-old male with: Syncopal episode Likely 2/2 medication effects? Back to baseline now, no complaints. Will monitor overnight Hypotension Patient on lot of blood pressure medication, will need to adjust medications prior to discharge. Hold medications at this time. 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 History of endarterectomy bilaterally Stable Hyperlipidemia Continue home statin Essential Hypertension Hold medications at this time, will adjust prior to discharge. DVT prophylaxis: Plavix GI prophylaxis: Not needed Diet: heart healthy Dispo: Admit to floor, monitor overnight. If asymptomatic and pacemaker okay, discharge home tomorrow. - Advance Directives Does patient have a Living Will: Yes Does patient have a Durable POA for Healthcare: Yes Physician Review: Patient Assessed, Agree with Above Assessment and Plan Time Spent Managing Pts Care (In Minutes): 55
[2018-08-28] MEDS ORDERED: TAMSULOSIN 0.4 MG SR CAP PO SCH (21:00)
[2018-08-28] MEDS ORDERED: ATORVASTATIN 10 MG TAB PO SCH (21:00)
[2018-08-28] MEDS: LISINOPRIL 20 MG TAB PO SCH (21:28)
[2018-08-28] MEDS: CARVEDILOL 25 MG TAB PO SCH (21:29)
[2018-08-28 23:29] VITALS: O2SAT 94
--- NOTE | 2018-08-29 07:02 | EKG ---
Test Date: 2018-08-28 Test Time: 10:46:05 Front Office Help: ABDIRASHID MEASUREMENT RESULTS: Intervals: Rate: 83 RI: 238 QRSD: 116 QT: 392 QTc: 460 [place]: P: 5 RI: 238 QRS: 24 T: -30 INTERPRETIVE STATEMENTS: Atrial-paced rhythm with prolonged AV conduction Inferior infarct, age undetermined Anterior infarct, age undetermined Abnormal ECG Compared to ECG 05/06/2018 11:00:59 Sinus rhythm no longer present ST (T wave) deviation no longer present Possible ischemia no longer present Myocardial infarct finding still present Electronically Signed On 08-29-18 06:53:03 BODY WORKER by Christopher Rodriguez
[2018-08-29 07:20] LABS: Absolute Lymphocytes (CBC) 0.9 K/uL (0.7-4.9); Absolute Monocytes 0.5 K/uL (0.1-1.3); Absolute Neutrophil 5.6 K/uL (1.8-8.0); Basophils % 0.5 % (0-1.3); Eosinophils % 1.3 % (0-4.4); Hematocrit 34.1 % (39.6-49.0); Lymphocytes % 12.9 % (15.3-44.8); MPV 10.8 fL (7.6-11.3); RBC Red Blood Cell Count 3.57 M/uL (4.33-5.43)
[2018-08-29 07:52] LABS: Albumin 3.3 g/dL (3.4-5.0); Bilirubin Total 0.6 mg/dL (0.2-1.0); Magnesium 2.2 mg/dL (1.8-2.4); Phosphorus 2.6 mg/dL (2.5-4.9); Potassium 4.1 mmol/L (3.5-5.1); Protein, Total 5.9 g/dL (6.4-8.2)
[2018-08-29] MEDS ORDERED: ENOXAPARIN 30 MG/0.3 ML SQ SCH (09:00)
[2018-08-29] MEDS ORDERED: CYANOCOBALAMIN 1,000 MCG TAB PO SCH (09:00)
[2018-08-29] MEDS ORDERED: ASPIRIN 81 MG CHEWABLE TABLET PO SCH (09:00)
[2018-08-29] MEDS ORDERED: CLOPIDOGREL 75 MG TABLET PO SCH (09:00)
[2018-08-29] MEDS ORDERED: FESOTERODINE FUMARATE PO SCH (09:00)
[2018-08-29] MEDS ORDERED: hydroCHLOROthiazide 12.5 MG CAP PO SCH (09:00)
[2018-08-29] MEDS: CARVEDILOL 25 MG TAB PO SCH (09:26)
[2018-08-29] MEDS: LISINOPRIL 20 MG TAB PO SCH (09:27)
--- NOTE | 2018-08-29 12:19 | CON ---
Date of Consultation: 08/29/[address] patient admitted to Dr. Ram's service on 08/28/2018. I saw the patient on 08/29/2018. Reason For Consultation: Altered mental status and hypotension. History Of Present Illness: Mr. Humphrey is an 83-year-old male with history of signific ant dementia, has had a history of CAD, status post CABG; has a history of cerebrovascular disease, s tatus post bilateral carotid endarterectomy. Has had a CVA before. Has a history of congestive hear t failure that is probably diastolic. Has a history of hypertension, dyslipidemia, benign prostatic hypertrophy, and a pacemaker placement. 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 They were souza pposed to follow up with Dr. Molina in that regard. He came in with altered mental status, hypotens ion, hypoxia; was found to have a normal chest x-ray, normal CT of the head. Pacemaker function appe ared to be normal. Creatinine is 1.7. Troponin is negative. This has improved and he is asymptomat ic now. Past Medical History: As stated above. Allergies: NONE. Review of Systems: Negative. Social History: Negative. Family History: Noncontributory. Medications: His medications include Pravachol, Flomax, aspirin, Plavix, Coreg, hydrochlorothiazide, and lisinopril. Physical Examination: General: He was alert and oriented x3. Vital Signs: Stable. He was in a paced rhythm, afebrile. HEENT: Negative. Neck: Supple with bilateral carotid bruit. Chest: Clear to auscultation and percussion. Cardiac Exam: Revealed a paced rhythm. No murmurs, gallops, or rubs. Abdomen: Benign. Extremities: Revealed no clubbing, cyanosis, or edema. Neurological Exam: Appeared to be grossly normal. Diagnostic Data: As stated earlier. Impression And Plan: I think his symptoms of altered mental status, low blood pressure, and decrease d O2 are probably secondary to orthostatic hypotension and possibly bradycardia. I would definitely check his pacemaker function to be sure that this is not an issue. I think we need to stop his hydro chlorothiazide. I think the combination of hydrochlorothiazide, Flomax, and Coreg may be an issue. I would definitely decrease his Coreg dose as his blood pressure is pretty adequate. I would continu e the aspirin and Plavix and the lisinopril as well as the Pravachol. I still think he needs to have his carotid checked, but I recommended he follows up with Dr. Molina as soon as possible. His othe r problems including dyslipidemia, BPH, history of CABG, CVA, and history of congestive heart failure seem to be stable. I would not repeat any further cardiac workup. He just had an echo recently in April, which was within normal limit. I will discuss the case further with Dr. Ram. We can send him home whenever it is okay with her. MARCELINO/CARMEN Voice ID: [id number] Report ID: [id number]
[2018-08-29 16:17] VITALS: TEMP 98.8
--- NOTE | 2018-08-29 16:21 | P.SSS ---
Patient History Date of Service: 08/29/18 History of Present Illness: This is a 83-year-old male with history of CHF, hyperlipidemia, hypertension and a pacemaker admitted for an episode of unresponsiveness this morning that lasts over 15 min that. Per patient, he fell as low as well as this morning. He did he called ambulance and was brought to the ER. Per daughter, he does have episodes like this in passing out with diaphoresis. Nothing different this time per daughter. In the ER, his oxygen was low in the 80s and they were unable to get a blood pressure. After some fluids, his blood pressure did improve to 90/55 and improved even further from there. At the time of my exam, his back to baseline, denying any chest pain, shortness breath, dizziness, pain and worry is symptoms. He does use a cane to walk at home and he is pretty independent at baseline. At the time of my exam, he was satting 90% on room air as of has a stable and he was hemodynamically stable. We will be admitted for observation overnight Son was on at bedside, but after speaking to nurse it seems that the son did he potentially heard the defibrillator going off last night when patient fell. But he is not very sure and neither is the patient. Allergies No Known Allergies Allergy (Verified 08/28/18 14:47) Home Medications: Aspirin 81 mg PO DAILY 05/06/18 Clopidogrel Bisulfate [Plavix*] 75 mg PO DAILY 05/06/18 D3/Red Wine/Resveratrol/Malt [Super-D3+ Softgel] 5,000 iu PO DAILY 05/06/18 Lisinopril 20 mg PO BID 05/06/18 Mecobalamin [B-12] 1,000 mcg PO DAILY 05/06/18 Pravastatin Sodium 40 mg PO DAILY 05/06/18 Fesoterodine Fumarate [Toviaz] 1 tab PO DAILY 08/28/18 Tamsulosin [Flomax*] 1 tab PO BEDTIME 08/28/18 Carvedilol [Coreg] 12.5 mg PO BID #30 tab 08/29/18 - Past Medical/Surgical History Has patient received pneumonia vaccine in the past: Yes Diabetic: No -: Hyperlipidemia -: CHF -: BPH -: glaucoma -: cataracts -: CABG -: HTN -: Pacemaker -: MA -: pacemaker -: bridgette -: prostate sx -: l/eye cataract sx -: right eye prosthetic -: MA (2000) - Family History Father -: Lung disease Mother -: Diabetes - Social History Smoking Status: Never smoker Alcohol use: No CD- Drugs: No Caffeine use: Yes Place of Residence: Home Review of Systems As noted Physical Examination - Vital Signs Temperature: 98.8 F Blood Pressure: 112/56 Pulse: 72 Respirations: 18 Pulse Ox (%): 96 - Physical Exam General: Alert, In no apparent distress, Oriented x3 HEENT: Atraumatic, PERRLA, Mucous membr. moist/pink, EOMI, Sclerae nonicteric Neck: Supple, 2+ carotid pulse no bruit, No LAD, Without JVD or thyroid abnormality Respiratory: Clear to auscultation bilaterally, Normal air movement Cardiovascular: Regular rate/rhythm, Normal S1 S2 Gastrointestinal: Normal bowel sounds, No tenderness Musculoskeletal: No tenderness Integumentary: No rashes Neurological: Normal gait, Normal speech, Normal strength at 5/5 x4 extr, Normal tone, Normal affect Lymphatics: No axilla or inguinal lymphadenopathy Treatment Summary: Syncopal episode: Resolved, asymptomatic overnight. Will make medication changes as below. Hypotension: BP now back in normal range. Pacemaker in place Pacemaker interrogated. No changes recommended at this time. Cardiology consulted. Patient's spiritual care coordinator is Dr. Molina. He is to follow up with Dr. Molina after discharge in 1-2 weeks for further evaluation. History of MA, quadruple bypass Remained stable throughout the stay. History of endarterectomy bilaterally Stable throughout the stay. Hyperlipidemia Continue home statin, no changes to dosage on discharge. Essential Hypertension Medication changes: Discontinue HCTZ, decrease coreg to 12.5 mg bid. Explained to patient and counseled extensively on taking medications correctly. - Disposition Disposition: ROUTINE DISCHARGE Condition: GOOD Consultations: Cardiology, Dr. Rodriguez Patient Discharge Instructions: Please see your primary care physician in 1 week. Please see your spiritual care coordinator in 1 week for follow up. Medication changes : Discontinue hydrochlorothiazide till you see your spiritual care coordinator. Decrease the dosage for coreg to 12.5 mg twice a day. New prescription sent to your pharmacy. Please do not take both your old medication and the new one together. We would like to decrease the dosage to 12.5 mg twice a day. Diet: AHA Activity: Fall precautions Physician Review: Patient Assessed, Agree with Above Assessment and Plan Time Spent Managing Pts Care (In Minutes): 55
--- OUTSIDE RECORDS SUMMARY | 2018-08-29 17:05 | XMS REPORT ---
:1935 [facility] Address [address] [place] [address] Dr. Pimentel [address] [place] [id number] Care Team Providers Name Role Phone Unavailable Unavailable Unavailable Payers Payer Name Policy Type Policy Number Effective Date Expiration Date Problems This patient has no known problems. Allergies, Adverse Reactions, Alerts Allergy Allergy Status Severity Reaction(s) Onset Inactive Treating Comments Name Type Date Date Clinician No Known DA Active U 2013-03 Allergies -10 00:00:0 0 Medications This patient has no known medications.
[2018-08-29 17:19] VITALS: BP 161/68
--- NOTE | 2018-09-01 02:40 | PN ---
Mr. Humphrey had came in with what sounded like orthostatic hypotension but a pacemaker report shows an episode of tachycardia that was pacer terminated. This certainly could have caused his syncope. I t hink Mr. Humphrey needs to continue his beta-blockers. I think we need to discontinue his hydrochloroth iazide as it may have exacerbated this with hypokalemia and hypomagnesemia. I think he needs to be c onsidered for an Electrophysiology consultation. He also needs his carotid arteries evaluated. He s ees Dr. Molina as an outpatient and I think whenever he goes home he needs to go see Dr. Molina for both of those issues. The pacemaker was checked and adjusted. MARCELINO/MODL Voice ID: [id number] Report ID: [id number]
== END 2018-08-29 17:56 | disposition home or self-care (01) ==
LOC: ER 10:36 → ERHOLD 13:05 → 4TH 14:20
PROVIDERS: ADMIT Family Medicine; ATTEND Family Medicine
DX: R55 Syncope and collapse (principal); I95.9 Hypotension, unspecified; I11.0 Hypertensive heart disease with heart failure; I50.9 Heart failure, unspecified; E78.5 Hyperlipidemia, unspecified; N40.0 Benign prostatic hyperplasia without lower urinary tract symptoms; Z95.1 Presence of aortocoronary bypass graft; I25.2 Old myocardial infarction; Z95.0 Presence of cardiac pacemaker
CPT/HCPCS: 36415; 70450; 71045; 80048; 80053; 80076; 81015; 82550; 82553; 83605; 83690; 83735; 84100; 84145; 84484; 85025 ×2; 85610; 85730; 87088; 93005; 93280; 94760 ×3; 99285; G0378 ×2; J1650; J7030 ×2; 87086

== ENCOUNTER 2019-02-05 11:23 | Emergency (ER) | payer OTHER ==
[2019-02-05 12:31] LABS: Absolute Lymphocytes (CBC) 0.9 K/uL (0.7-4.9); Absolute Monocytes 0.6 K/uL (0.1-1.3); Absolute Neutrophil 7.8 K/uL (1.8-8.0); Basophils % 0.4 % (0-1.3); Eosinophils % 0.8 % (0-4.4); Hematocrit 40.4 % (39.6-49.0); Lymphocytes % 9.7 % (15.3-44.8); MPV 10.8 fL (7.6-11.3); Monocytes % 6.3 % (3.3-12.3); RBC Red Blood Cell Count 4.17 M/uL (4.33-5.43)
[2019-02-05 12:33] LABS: Protime INR 1.06
--- NOTE | 2019-02-05 14:29 | EKG ---
Test Date: 2019-02-05 Test Time: 11:25:06 Benefits Assistant: RAFI MEASUREMENT RESULTS: Intervals: Rate: 81 VT: 128 QRSD: 120 QT: 386 QTc: 448 [place]: P: 13 VT: 128 QRS: 30 T: 252 INTERPRETIVE STATEMENTS: Sinus rhythm with occasional premature ventricular complexes Inferior infarct, age undetermined ST & T wave abnormality, consider lateral ischemia Abnormal ECG Compared to ECG 08/28/2018 10:46:05 Ventricular premature complex(es) now present ST (T wave) deviation now present Possible ischemia now present Atrial-paced complex(es) or rhythm no longer present Ventricular-paced complex(es) or rhythm no longer present Myocardial infarct finding still present Electronically Signed On 02-05-19 14:28:46 CDT by Christopher Rodriguez
[2019-02-05 14:37] LABS: ALT/SGPT 18 U/L (12-78); AST/SGOT 21 U/L (15-37); Albumin 3.4 g/dL (3.4-5.0); Alkaline Phosphatase 89 U/L (45-117); BUN Blood Urea Nitrogen 29 mg/dL (7-18); Bicarbonate 20 mmol/L (21-32); Bilirubin Direct 0.2 mg/dL (0-0.2); Bilirubin Total 0.8 mg/dL (0.2-1.0); Glucose Level 124 mg/dL (74-106); Magnesium 2.5 mg/dL (1.8-2.4); NT PRO-BNP 468 pg/mL (<450); Potassium 4.9 mmol/L (3.5-5.1); Protein, Total 6.6 g/dL (6.4-8.2); Sodium Level 140 mmol/L (136-145); Troponin (Emerg Dept Use Only) < 0.02 ng/mL (0.0-0.045)
--- OUTSIDE RECORDS SUMMARY | 2019-02-05 15:00 | XMS REPORT ---
:1935 [facility] Address [address] [place] [address] Dr. Pimentel [address] [place] [id number] Care Team Providers Name Role Phone Unavailable [...]
--- NOTE | 2019-02-05 15:41 | RAD REPORT ---
EXAM DESCRIPTION: RAD - Chest Single View - 02/05/2019 1:24 pm CLINICAL HISTORY: AMS Chest pain. COMPARISON: Chest Single View dated 08/28/2018; Chest Single View dated 05/06/2018; Chest Single View dated 10/24/2017; Chest Single View dated 09/27/2016 FINDINGS: Portable technique limits examination quality. The lungs are grossly clear. The heart is mildly enlarged in size with a multi lead pacer/defibrillat or device. No displaced fractures.Sternotomy wires present. IMPRESSION: No acute intrathoracic process suspected.
--- NOTE | 2019-02-05 16:50 | EDPHYS ---
Physician Documentation [facility] Name: Pee Humphrey Age: 83 yrs Sex: Male : 1935 Arrival Date: 02/05/2019 Time: 11:24 Bed 6 Private MD: ED Physician Diaz Arias HPI: 02/05 16:42 This 83 yrs old Male presents to ER via EMS with complaints of Firing of kdr Defibrillator/Pacemaker, Unresponsive. 16:42 The patient states that he does not know why he is here. States he feels fine and in kdr his normal states of health. Onset: The symptoms/episode began/occurred gradually, today. Severity of symptoms: At their worst the symptoms were very mild in the emergency department the symptoms have resolved. It is unknown whether or not the patient has had similar symptoms in the past. It is unknown whether or not the patient has recently seen a physician. Historical: - Allergies: 12:04 No Known Allergies; tw2 - Home Meds: 12:04 aspirin 81 mg Oral TbEC [Active]; b-12 500mcg [Active]; Vitamin D3 5,000 unit Oral tab tw2 [Active]; pravastatin 40 mg Oral tab 1 tab once daily [Active]; Toviaz 4 mg Oral Tb24 1 tab once daily [Active]; clopidogrel 75 mg Oral tab 1 tab once daily [Active]; lisinopril 20 mg Oral tab 1 tab once daily [Active]; carvedilol 25 mg Oral tab 1 tab 2 times per day [Active]; - PMHx: 12:04 Hyperlipidemia; Hypertension; CHF; tw2 - PSHx: 12:04 Pacemaker; Heart Surgery; tw2 - Immunization history:: Adult Immunizations. - Social history:: Smoking status: . - Ebola Screening: : Patient denies travel to an Ebola-affected area in the 21 days before illness onset. ROS: 16:42 Constitutional: Negative for fever, chills, and weight loss, Eyes: Negative for injury, kdr pain, redness, and discharge, Neck: Negative for injury, pain, and swelling, Respiratory: Negative for shortness of breath, cough, wheezing, and pleuritic chest pain, Abdomen/GI: Negative for abdominal pain, nausea, vomiting, diarrhea, and constipation, Back: Negative for injury and pain, : Negative for injury, bleeding, discharge, and swelling, MS/Extremity: Negative for injury and deformity, Skin: Negative for injury, rash, and discoloration, Neuro: Negative for headache, weakness, numbness, tingling, and seizure activity. Psych: Negative for depression, anxiety, suicide ideation, homicidal ideation, and hallucinations, Allergy/Immunology: Negative for hives, rash, and allergies, Endocrine: Negative for neck swelling, polydipsia, polyuria, polyphagia, and marked weight changes, Hematologic/Lymphatic: Negative for swollen nodes, abnormal bleeding, and unusual bruising. 16:42 Cardiovascular: Positive for Pacemaker firing reported but the patient denies. Exam: 16:42 Constitutional: This is a well developed, well nourished patient who is awake, alert, kdr and in no acute distress. Head/Face: Normocephalic, atraumatic. Eyes: Pupils equal round and reactive to light, extra-ocular motions intact. Lids and lashes normal. Conjunctiva and sclera are non-icteric and not injected. Cornea within normal limits. Periorbital areas with no swelling, redness, or edema. Neck: Trachea midline, no thyromegaly or masses palpated, and no cervical lymphadenopathy. Supple, full range of motion without nuchal rigidity, or vertebral point tenderness. No Meningismus. Chest/axilla: Normal chest wall appearance and motion. Nontender with no deformity. No lesions are appreciated. Cardiovascular: Regular rate and rhythm with a normal S1 and S2. No gallops, murmurs, or rubs. Normal PMI, no JVD. No pulse deficits. Respiratory: Lungs have equal breath sounds bilaterally, clear to auscultation and percussion. No rales, rhonchi or wheezes noted. No increased work of breathing, no retractions or nasal flaring. Abdomen/GI: Soft, non-tender, with normal bowel sounds. No distension or tympany. No guarding or rebound. No evidence of tenderness throughout. Back: No spinal tenderness. No costovertebral tenderness. Full range of motion. Skin: Warm, dry with normal turgor. Normal color with no rashes, no lesions, and no evidence of cellulitis. MS/ Extremity: Pulses equal, no cyanosis. Neurovascular intact. Full, normal range of motion. Neuro: Awake and alert, GCS 15, oriented to person, place, time, and situation. Cranial nerves II-XII grossly intact. Motor strength 5/5 in all extremities. Sensory grossly intact. Cerebellar exam normal. Normal gait. Psych: Awake, alert, with orientation to person, place and time. Behavior, mood, and affect are within normal limits. Vital Signs: 11:39 BP 116 / 61; Pulse 60; Resp 15; Temp 97.8(TE); Pulse Ox 99% on R/A; Weight 54.43 kg tw2 (R); Pain 0/10; 12:33 BP 117 / 55; Pulse 69; Resp 17; Pulse Ox 100% on 2 lpm NC; tw2 13:23 BP 139 / 59; Pulse 60; Resp 14; Pulse Ox 100% on 2 lpm NC; tw2 14:22 BP 122 / 68; Pulse 65; Resp 14; Pulse Ox 100% on 2 lpm NC; tw2 15:24 BP 160 / 88; Pulse 64; Resp 17; Pulse Ox 100% on 2 lpm NC; tw2 16:25 BP 165 / 105; Pulse 65; Resp 18; Pulse Ox 99% 2 lpm ; tw2 MDM: 16:42 Data reviewed: vital signs, nurses notes, lab test result(s), radiologic studies. kdr Counseling: I had a detailed discussion with the patient and/or guardian regarding: the historical points, exam findings, and any diagnostic results supporting the discharge/admit diagnosis, lab results, radiology results, the need for outpatient follow up. 16:50 Patient medically screened. [facility] 02/05 11:41 Order name: Basic Metabolic Panel; Complete Time: 16:37 [facility] 02/05 11:41 Order name: CBC with Diff [facility] 02/05 11:41 Order name: LFT's; Complete Time: 16:37 [facility] 02/05 11:41 Order name: Magnesium; Complete Time: 16:37 [facility] 02/05 11:41 Order name: NT PRO-BNP; Complete Time: 16:37 [facility] 02/05 11:41 Order name: PT-INR [facility] 02/05 11:41 Order name: Troponin (emerg Dept Use Only); Complete Time: 16:37 [facility] 02/05 11:41 Order name: XRAY Chest (1 view); Complete Time: 16:37 [facility] 02/05 11:41 Order name: EKG; Complete Time: 11:48 [facility] 02/05 11:41 Order name: Cardiac monitoring; Complete Time: 12:06 kdr 02/05 11:41 Order name: EKG - Nurse/Tech; Complete Time: 12:06 kdr 02/05 11:41 Order name: IV Saline Lock; Complete Time: 12:06 kdr 02/05 12:19 Order name: Glucose, Ancillary Testing; Complete Time: 13:47 EDMS 02/05 16:18 Order name: Diet Ada 1800 Po; Complete Time: 16:20 tw2 02/05 11:41 Order name: Labs collected and sent; Complete Time: 12:06 kdr 02/05 11:41 Order name: O2 Per Protocol; Complete Time: 12:06 kdr 02/05 11:41 Order name: O2 Sat Monitoring; Complete Time: 12: kdr 02/05 12:07 Order name: Labs - recollect needed; Complete Time: 12:10 ms Administered Medications: No medications were administered Disposition: 02/05/19 16:50 Discharged to Home. Impression: General well check. - Condition is Stable. - Medication Reconciliation Form, Thank You Letter, Antibiotic Education, Prescription Opioid Use form. - Follow up: Private Physician; When: 2 - 3 days; Reason: If symptoms return, Further diagnostic work-up, Recheck today's complaints, Continuance of care, Re-evaluation by your physician. - Problem is an ongoing problem. - Symptoms are unchanged. Signatures: Dispatcher [employer] [facility] Diaz Arias MD MD kdr Solis, Maria ms Wise, Tara, RN RN tw2 Corrections: (The following items were deleted from the chart) 17:12 16:50 02/05/2019 16:50 Discharged to Home. Impression: General well check. Condition is tw2 Stable. Forms are Medication Reconciliation Form, Thank You Letter, Antibiotic Education, Prescription Opioid Use. Follow up: Private Physician; When: 2 - 3 days; Reason: If symptoms return, Further diagnostic work-up, Recheck today's complaints, Continuance of care, Re-evaluation by your physician. Problem is an ongoing problem. Symptoms are unchanged. kdr
--- NOTE | 2019-02-05 16:50 | ER ---
Nurse's Notes [facility] Name: Pee Humphrey Age: 83 yrs Sex: Male : 1935 Arrival Date: 02/05/2019 Time: 11:24 Bed 6 Private MD: Diagnosis: General well check Presentation: 02/05 11:37 Presenting complaint: EMS states: pt from home, family called because he was conscious tw2 but unresponsive, he was in the passenger side of a vehicle, diaphoretic, they said this has happened before when his defibrillator/pacemaker fired, pt is responsive to painful stimuli, pt initial bp was 60/40's upon arrival was 90/40's, pt had lost bowel control and has urinated himself. Transition of care: patient was not received from another setting of care. Onset of symptoms was February 05, 2019. Risk Assessment: Do you want to hurt yourself or someone else? Patient reports no desire to harm self or others. Initial Sepsis Screen: Does the patient meet any 2 criteria? No. Patient's initial sepsis screen is negative. Does the patient have a suspected source of infection? No. Patient's initial sepsis screen is negative. Care prior to arrival: IV initiated. 20 GA, in the right wrist. 11:37 Method Of Arrival: EMS: [facility] tw2 11:37 Acuity: VENANCIO 2 tw2 11:41 Note pt was cleaned and placed in brief and gown at this time, MARY Fernandez and MARY Preston tw2 helped clean the pt. Triage Assessment: 11:40 General: Appears in no apparent distress. Behavior is appropriate for age. Pain: Denies tw2 pain. EENT: No signs and/or symptoms were reported regarding the EENT system. Neuro: Level of Consciousness is awake, alert, obeys commands, Oriented to person. Cardiovascular: Heart tones S1 S2 Patient's skin is warm and dry. Respiratory: Airway is patent Respiratory effort is even, unlabored, Respiratory pattern is regular, symmetrical, Breath sounds are clear. GI: No signs and/or symptoms were reported involving the gastrointestinal system. : No signs and/or symptoms were reported regarding the genitourinary system. Derm: No signs and/or symptoms reported regarding the dermatologic system. Musculoskeletal: Range of motion: intact in all extremities. Historical: - Allergies: 12:04 No Known Allergies; tw2 - Home Meds: 12:04 aspirin 81 mg Oral TbEC [Active]; b-12 500mcg [Active]; Vitamin D3 5,000 unit Oral tab tw2 [Active]; pravastatin 40 mg Oral tab 1 tab once daily [Active]; Toviaz 4 mg Oral Tb24 1 tab once daily [Active]; clopidogrel 75 mg Oral tab 1 tab once daily [Active]; lisinopril 20 mg Oral tab 1 tab once daily [Active]; carvedilol 25 mg Oral tab 1 tab 2 times per day [Active]; - PMHx: 12:04 Hyperlipidemia; Hypertension; CHF; tw2 - PSHx: 12:04 Pacemaker; Heart Surgery; tw2 - Immunization history:: Adult Immunizations. - Social history:: Smoking status: . - Ebola Screening: : Patient denies travel to an Ebola-affected area in the 21 days before illness onset. Screenin:05 Abuse screen: Denies threats or abuse. Nutritional screening: No deficits noted. tw2 Tuberculosis screening: No symptoms or risk factors identified. Fall Risk Secondary diagnosis (15 points) impaired mobility. Assessment: 12:10 Reassessment: Patient appears in no apparent distress at this time. No changes from tw2 previously documented assessment. Patient and/or family updated on plan of care and expected duration. Pain level reassessed. Patient is alert, oriented x 3, equal unlabored respirations, skin warm/dry/pink. see triage assessment. 13:27 Reassessment: Patient appears in no apparent distress at this time. No changes from tw2 previously documented assessment. Patient and/or family updated on plan of care and expected duration. Pain level reassessed. Patient is alert, oriented x 3, equal unlabored respirations, skin warm/dry/pink. 14:22 Reassessment: Patient appears in no apparent distress at this time. No changes from tw2 previously documented assessment. Patient and/or family updated on plan of care and expected duration. Pain level reassessed. Patient is alert, oriented x 3, equal unlabored respirations, skin warm/dry/pink. 15:24 Reassessment: Patient appears in no apparent distress at this time. No changes from tw2 previously documented assessment. Patient and/or family updated on plan of care and expected duration. Pain level reassessed. Patient is alert, oriented x 3, equal unlabored respirations, skin warm/dry/pink. 16:25 Reassessment: Patient appears in no apparent distress at this time. No changes from tw2 previously documented assessment. Patient and/or family updated on plan of care and expected duration. Pain level reassessed. Patient is alert, oriented x 3, equal unlabored respirations, skin warm/dry/pink. Vital Signs: 11:39 BP 116 / 61; Pulse 60; Resp 15; Temp 97.8(TE); Pulse Ox 99% on R/A; Weight 54.43 kg tw2 (R); Pain 0/10; 12:33 BP 117 / 55; Pulse 69; Resp 17; Pulse Ox 100% on 2 lpm NC; tw2 13:23 BP 139 / 59; Pulse 60; Resp 14; Pulse Ox 100% on 2 lpm NC; tw2 14:22 BP 122 / 68; Pulse 65; Resp 14; Pulse Ox 100% on 2 lpm NC; tw2 15:24 BP 160 / 88; Pulse 64; Resp 17; Pulse Ox 100% on 2 lpm NC; tw2 16:25 BP 165 / 105; Pulse 65; Resp 18; Pulse Ox 99% 2 lpm ; tw2 ED Course: 11:24 Patient arrived in ED. tw2 11:38 Placed in gown. Bed in low position. Side rails up X2. equipment monitor phototypesetting on. Pulse ox on. tw2 NIBP on. 11:39 Diaz Arias MD is Attending Physician. kdr 11:39 Triage completed. tw2 11:39 EKG done, by truck service technician. reviewed by Diaz Arias MD. sm3 11:40 Maintain EMS IV. Dressing intact. Good blood return noted. Site clean \T\ dry. Gauge \T\ tw 2 site: 22 g RIGHT forearm. 11:41 Arm band placed on. tw2 12:09 Mohan Schulte, RN is Primary Nurse. sg 13:23 Lab(s) recollected, by me, sent to lab. by 23G to right hand. dh3 13:24 X-ray completed. Portable x-ray completed in exam room. Patient tolerated procedure sw well. 13:25 XRAY Chest (1 view) In Process Unspecified. EDMS 17:12 No provider procedures requiring assistance completed. IV discontinued, intact, tw2 bleeding controlled, No redness/swelling at site. Pressure dressing applied. Administered Medications: No medications were administered Outcome: 16:50 Discharge ordered by . kdr 17:12 Discharged to home ambulatory. tw2 17:12 Condition: stable 17:12 Discharge instructions given to patient, family, Instructed on discharge instructions, follow up and referral plans. Demonstrated understanding of instructions, follow-up care. 17:12 Patient left the ED. tw2 Signatures: Dispatcher [employer] EDMS Mohan Schulte, RN RN Diaz Arias MD MD [facility] Karli Doan Tara, RN RN tw2 Mike, Jyoti 3 Judith Arroyo 3 Corrections: (The following items were deleted from the chart) 16:28 12:33 BP 117 / 55; Pulse 69bpm; Resp 17bpm; Pulse Ox 100% RA; tw2 tw2 16:28 13:23 BP 139 / 59; Pulse 60bpm; Resp 14bpm; Pulse Ox 100% RA; tw2 tw2 16:28 14:22 BP 122 / 68; Pulse 65bpm; Resp 14bpm; Pulse Ox 100% RA; tw2 tw2 16:28 15:24 BP 160 / 88; Pulse 64bpm; Resp 17bpm; Pulse Ox 100% RA; tw2 tw2
[2019-02-05 17:17] VITALS: TEMP 97.8
[2019-02-05 17:25] VITALS: BP 165/105; O2SAT 99
[2019-02-05 19:19] LABS: Blood Morphology Comment NOT SEEN (NOT SEEN); Platelet Estimate ADEQ; Urine White Blood Cell Casts OK
== END 2019-02-05 17:12 | disposition home or self-care (01) ==
LOC: ER 11:23
DX: Z00.00 Encounter for general adult medical examination without abnormal findings (principal)
CPT/HCPCS: 36415; 71045; 80048; 80076; 82962; 83735; 83880; 84484; 85025; 85610; 93005; 99284